=== PATIENT | female | born 1950 ===

== ENCOUNTER → 2025-05-16 | Outpatient (CLI) | payer MEDICARE, OTHER ==
[~2025-05-16] VITALS: Ht 157.5 cm; Wt 68.4 kg
[~2025-05-16] MED LIST: AMLO-258 PO; BUME1TAB50 PO; CALC1SOL2; CARV12 PO; CINA30TA32 PO; SEVE800T39 PO; SPIR50TA27 PO
[2025-05-16 11:01] VITALS: BP 181/73; PULSE 97; RESP 18; TEMP 98.2; O2SAT 99
== END | disposition home or self-care (01) ==
LOC: SRCNTR 10:36
PROVIDERS: ATTEND Internal Medicine
DX: I12.0 Hypertensive chronic kidney disease with stage 5 chronic kidney disease or end stage renal disease (principal); E11.22 Type 2 diabetes mellitus with diabetic chronic kidney disease; N18.6 End stage renal disease; E78.5 Hyperlipidemia, unspecified; Z79.899 Other long term (current) drug therapy; Z98.49 Cataract extraction status, unspecified eye; Z99.2 Dependence on renal dialysis
CPT/HCPCS: G0463